=== PATIENT | male | born 1985 | race Caucasian/White ===

== ENCOUNTER 2016-07-06 23:38 | Emergency (ER) | payer BC ==
[~2016-07-06] VITALS: Ht 172.7 cm; Wt 79.0 kg
--- OUTSIDE RECORDS SUMMARY | 2016-07-06 23:42 | XMS REPORT | Summary of Care ---
Author Author [facility] Organization [facility] Address [address] [place] [address] Phone Care Team Providers Care Concrete Products Dispatcher Name Role Phone Ezequiel BIRCH, User Unavailable Unavailable ElviaDerian Unavailable Unavailable Unavailable Unavailable Functional Status Name Dates Details Functional status health issues are not documented Status: Name Dates Details Cognitive status health issues are not documented Status: Problems Name Dates Details Benign neoplasm of skin of face (216.3, D23.30) Status: Active Epidermal inclusion cyst (706.2, L72.0) Status: Active Benign neoplasm of skin of trunk (216.5, D23.5) Status: Active Medications Name Dates Details Medication not documented Allergies and Adverse Reactions Name Dates Details Penicillins (Allergy) Status: Active vancomycin (Allergy) Status: Active Procedures Procedure Dates Details Procedures not documented Immunization Name Dates Details Immunizations not documented Social History Name Dates Details Unknown if ever smoked Vital Signs Date Test Result Details No Known Vitals to report Results Date Description Value Details Results not documented Plan of Care Name Dates Details Planned Observations Planned Goals not documented Planned Encounters Appointment; Provider: Dylon Martinez M.D. On 15-May-2016 08:30 Instructions Name Dates Details Instructions not documented Encounters Appointment; Dyoln Martinez M.D. Encounter Diagnosis: Problem not documented On 06-May-2016 14:30 Appointment; Dylon Martinez M.D. Encounter Diagnosis: Problem not documented On 09:00
[2016-07-06] MEDS ORDERED: HYDROmorphone 1 MG/ML (DILAUDID) SYRINGE IV ONE (23:55)
[2016-07-06] MEDS ORDERED: ONDANSETRON 2 MG/ML (Z0FRAN) 2 ML VIAL IV ONE (23:55)
[2016-07-06] MEDS ORDERED: SODIUM CHLORIDE FLUSH 3 ML SYR IV ONE (23:55)
[2016-07-06] MEDS ORDERED: ONDANSETRON 2 MG/ML (Z0FRAN) 2 ML VIAL ONE (23:58)
[2016-07-07] MEDS: SODIUM CHLORIDE FLUSH 10 ML SYR IV PRN ×2 (00:17→01:28)
[2016-07-07 00:20] LABS: MEAN CORPUSCULAR HEMOGLOBIN 29.3 PG (26.0-34.0); MEAN PLATELET VOLUME 9.8 FL (6.0-9.5); PLATELET COUNT 327 10^3uL (150-450); WHITE BLOOD COUNT 15.57 10^3uL (4.0-11.0)
[2016-07-07 00:30] LABS: ALBUMIN 5.3 g/dL (3.4-5.0); ANION GAP 21.7 MEQ/L (3-15); CALCULATED IONIZED CALCIUM 3.8 mg/dL (3.8-4.6); TOTAL PROTEIN 8.8 g/dL (6.4-8.5)
[2016-07-07] MEDS ORDERED: PROMETHAZINE HCL INJ 12.5 MG in SODIUM CHLORIDE 25 ML IV ONE (01:15)
[2016-07-07] MEDS ORDERED: HYDROmorphone 1 MG/ML (DILAUDID) SYRINGE IV ONE (01:15)
[2016-07-07] MEDS ORDERED: ED- ONDANSETRON ODT 4 MG (ZOFRAN) 4 TABLETS/BTL PO ONE (01:15)
[2016-07-07 01:33] LABS: MEAN CORPUSCULAR VOLUME 79 FL (80-100)
[2016-07-07 01:45] LABS: BAND NEUTROPHILS % 10 % (0-6); EOSINOPHILS % 1 % (0-4); LYMPHOCYTES # 1.6 #; MONOCYTES # 1.1 #; MONOCYTES % 7 % (3-11); RBC MORPH NORMAL (NORMAL); SEGMENTED NEUTROPHILS % 72 % (51-67); TOTAL CELLS COUNTED 100
--- NOTE | 2016-07-07 02:15 | NUR ---
STOOL SAMPLE WAS COLLECTED AND SENT DOWN TO LAB
[2016-07-07] MEDS ORDERED: PANTOPRAZOLE IV 40 MG in SODIUM CHLORIDE FLUSH 10 ML IV ONE (02:35)
[2016-07-07 02:56] LABS: CLARITY,URINE Clear; GLUCOSE, URINE (UA) Negative (Negative); LEUKOCYTE ESTERASE ,URINE Negative (Negative); PH,URINE 5.5 (5.0 - 8.0); UROBILINOGEN,URINE 0.2 mg/dL (0.2-1.0)
[2016-07-07 03:18] VITALS: BP 107/64
[2016-07-07 03:36] LABS: BILIRUBIN,URINE 1+ (Negative); COLOR,URINE Dark Yellow; RBC,URINE 0-2 /HPF; URINE CENTRIFUGED VOLUME 12 mL
[2016-07-07 03:37] LABS: AMORPHOUS SEDIMENT,UR Rare /HPF
--- NOTE | 2016-07-07 07:50 | Diagnostic Imaging Report ---
INDICATION: Abdominal pain COMPARISON: None FINDINGS: PA chest: Heart size is normal. The pulmonary vessels appear unremarkable. There is no pneumothorax, mediastinal widening or pleural fluid. Abdomen: AP upright and supine views of the abdomen are obtained. There is a paucity of intestinal gas with minimal scattered colonic gas present. The bowel gas pattern is otherwise unremarkable. No urinary tract calcifications are suspected. There is no evidence of free intraperitoneal air. The osseous structures appear unremarkable with the exception of a transitional segment at the lumbosacral junction. IMPRESSION: There is no radiographic evidence of an acute cardiopulmonary or abdominal process. Dictated by: Dictated on workstation # [id number]
== END 2016-07-07 03:15 | disposition home or self-care (01) ==
LOC: ED 23:39
DX: R11.2 Nausea with vomiting, unspecified (principal); R19.7 Diarrhea, unspecified
CPT/HCPCS: 36415; 74022; 80053; 81003; 81015; 83690; 85025; 86140; 87507; 96361; 96365; 96375; 96376; 99283; C9113; J1170; J2405; J2550; J7030